=== PATIENT | male | born 2000 | race Caucasian/White ===

== ENCOUNTER 2018-03-02 00:07 | Emergency (ER) | payer OTHER ==
--- NOTE | 2018-03-02 00:36 | EDPHY ---
H & P Stated Complaint: "i'm having a heart attack", anxious, mid chest tightness Time Seen by Provider: 03/02/18 00:36 HPI/ROS: HPI CHIEF COMPLAINT: Anxiety attack HISTORY OF PRESENT ILLNESS: 17-year-old male, presents to the emergency room by private vehicle stating that he is feeling very anxious states that he was watching a movie lying down relaxed when all the sudden he felt his heart racing , numbness and tingling in bilateral arms, and epigastric spasms he states his abdomen with spasming. This started around 11 o'clock or close to 2 hr ago. It lasted 20-30 minutes. Due to this he felt very anxious any decided come the emergency room for evaluation. Past Medical History: Denies significant medical history Past Surgical History: Denies significant surgical history Social History: [employer] student, large amount of alcohol this weekend he states 10 drinks per day leading to him blacking out. Family History: Noncontributory ROS REVIEW OF SYSTEMS: 10 Systems were reviewed and negative with the exception of the elements mentioned in the history of present illness. Exam Constitutional anxious, nontoxic, triage nursing summary reviewed, vital signs reviewed, awake/alert. Eyes normal conjunctivae and sclera, EOMI, PERRLA. HENT normal inspection, atraumatic, moist mucus membranes, no epistaxis, neck supple/ no meningismus, no raccoon eyes. Respiratory clear to auscultation bilaterally, normal breath sounds, no respiratory distress, no wheezing. Cardiovascular rate normal, regular rhythm, no murmur, no edema, distal pulses normal. Gastrointestinal soft, non-tender, no rebound, no guarding, normal bowel sounds, no distension, no pulsatile mass. Genitourinary no CVA tenderness. Musculoskeletal no midline vertebral tenderness, full range of motion, no calf swelling, no tenderness of extremities, no meningismus, good pulses, neurovascularly intact. Skin pink, warm, & dry, no rash, skin atraumatic. Neurologic awake, alert and oriented x 3, AAOx3, moves all 4 extremities equally, motor intact, sensory intact, CN II-XII intact, normal cerebellar, normal vision, normal speech. Psychiatric normal mood/affect. Heme/Lymph/Immune no lymphadenopathy. Differential diagnosis includes but is not limited to: Acute anxiety attack, panic attack ACS, atypical chest pain, pneumothorax, pneumonia, pulmonary embolism, aortic dissection, congestive heart failure, tumor, musculoskeletal pain, esophageal pain, GERD, peptic ulcer disease, pancreatitis Medical Decision Making: Plan for this patient IV establishment with IV fluid bolus, GI cocktail to see if this helps with spasms, IV Ativan for anxiety, check troponin, EKG, chest x-ray, D-dimer and re-evaluate. Re-evaluation: EKG interpretation by me on record in [email or web address] system. Impression time of EKG 0018, sinus tach 101 T-wave inversion lead 3. Otherwise no abnormal T- waves. I do not appreciate ST elevation. Of note the EKG at the top of the EKG is reading borderline ST elevation in anterior leads however I disagree with this. 0430: Patient re-evaluated this time is resting comfortably. Denies any chest pain or shortness of breath. Feels much better after IV Ativan. Has been sleeping here in the emergency room for over 4 hr. Resting. No complaints. Patient's initial troponin was negative. Additionally the initial EKG did not show any acute ischemia. I have repeated the patient's troponin over 4 hr since being in the emergency room, and is 0.00. The patient does not have any ongoing chest pain. I also repeated the patient's EKG. EKG interpretation by me on record in [email or web address] system. Impression time of EKG 4:09 a.m., this is sinus rhythm rate is 71 T-wave abnormality lead 3. An EKG appears to have a early Re-bertha pattern. The patient's EKG displaying a re-bertha patterns, make sense as this is a young healthy 17-year-old male. I think acute coronary syndrome is very unlikely given he has been monitored for multiple hours in the emergency room with 2- troponins. Of which the 2nd troponin is over 6 hr from time of symptom onset. He has had 2 troponins here that her 0.00 and 4 hr apart. Additionally 2 EKGs that are re-bertha pattern. Also patient improved with IV Ativan. Additionally I did review the patient's chest x-ray. This is negative for acute cardiopulmonary disease. . 0501AM: When discussed patient's extensive workup here in emergency room is resting comfortably in fact he was sleeping. He denies any chest pain or shortness of breath. He states he feels much better after IV Ativan. However on further discussion he does state that he has been suffering from depression for a long time. Since age 9. He is not on any depression medications. I asked him if he has had thoughts of suicide recently states that he has thoughts of suicide every day. But would not do this. He would not take action. However he states he is depressed, and he is agreeable to speak with mental health. 0633AM: I additionally spoke with Dr. Atkinson with Cardiology about this patient's presentation and we reviewed his EKGS. Dr. Atkinson Looked at his EKGS and we discussed both of them in detail. He feels this is Early Repol. As they had ST elevation that appears to be [id number] pattern. Dr. Atkinson he has reviewed the EKGs. He feels that these EKGs are a early re-bertha pattern, and that if he is no longer having pain (which he does not have any pain) and 2 negative troponins, patient can be discharged. Patient does not have any chest pain. Feeling well. However, patient would like to speak to mental health. We are waiting for mental health to discuss with him. 3rd troponin 0.00 Signed over at 7am shift-change to Dr. Ramos follow up Mental Health Recs. Source: Patient - Personal History Current Tetanus Diphtheria and Acellular Pertussis (TDAP): Yes - Medical/Surgical History Hx Asthma: No Hx Chronic Respiratory Disease: No Hx Diabetes: No Hx Cardiac Disease: No Hx Renal Disease: No Hx Cirrhosis: No Hx Alcoholism: No Hx HIV/AIDS: No Hx Splenectomy or Spleen Trauma: No Other PMH: denies - Social History Smoking Status: Never smoked Constitutional: Initial Vital Signs Temperature (C) 36.5 C 03/02/18 00:10 Heart Rate 117 H 03/02/18 00:10 Respiratory Rate 20 03/02/18 00:10 Blood Pressure 163/92 H 03/02/18 00:10 O2 Sat (%) 97 03/02/18 00:10 O2 Delivery Mode Room Air Allergies/Adverse Reactions: No Known Allergies Allergy (Unverified 03/02/18 00:10) Medical Decision Making - Data Points Laboratory Results: Laboratory Results 03/02/18 00:30 03/02/18 00:30 Medications Given: Discontinued Medications Al Hydroxide/Mg Hydroxide (Maalox Susp) 30 ml PO ONCE ONE Stop: 09/05/18 00:45 Last Admin: 03/02/18 01:08 Dose: 30 ml Hyoscyamine Sulfate (Levsin, Hyomax-Sl) 0.25 mg PO ONCE ONE Stop: 03/02/18 00:45 Last Admin: 03/02/18 01:07 Dose: 0.25 mg Sodium Chloride (Ns) 1,000 mls @ 0 mls/hr IV EDNOW ONE; Wide Open PRN Reason: Protocol Stop: 03/02/18 00:45 Last Admin: 03/02/18 02:15 Dose: Not Given Lidocaine (Lidocaine 2% Viscous) 15 ml PO ONCE ONE Stop: 03/02/18 00:45 Last Admin: 03/02/18 01:08 Dose: 15 ml Lorazepam (Ativan Injection) 1 mg IVP EDNOW ONE Stop: 03/02/18 00:49 Last Admin: 03/02/18 01:08 Dose: 1 mg Point of Care Test Results: Chemistry 03/02/18 03/02/18 03/02/18 06:47 04:15 01:19 POC Troponin I 0.00 ng/mL ng/mL 0.00 ng/mL ng/mL 0.01 ng/mL ng/mL (0.00-0.08) (0.00-0.08) (0.00-0.08) Departure - Departure Disposition: Home, Routine, Self-Care Clinical Impression: Anxiety attack Depression Qualifiers: Depression Type: major depressive disorder Major depression recurrence: single episode Active/Remission status: currently active Major depression episode severity: mild Qualified Code(s): F32.0 - Major depressive disorder, single episode, mild Condition: Good Instructions: Depression (ED), Anxiety (ED) Additional Instructions: 1. Return to the emergency room if develops worsening symptoms this includes shortness of breath, chest pain, or not feeling well. Referrals: NONE *PRIMARY CARE P,. [Primary Care Provider] - As per Instructions [facility] [Clinic] - As per Instructions
[2018-03-02] MEDS ORDERED: MAG HYDROX/AL HYDROX/SIMETH 30 ML UDCUP PO ONE (00:44)
[2018-03-02] MEDS ORDERED: LIDOCAINE 2% VISCOUS 15 ML UDCUP PO ONE (00:44)
[2018-03-02] MEDS ORDERED: NS 1,000 ML IV ONE (00:44)
[2018-03-02] MEDS ORDERED: HYOSCYAMINE SULFATE 0.125 MG TAB PO ONE (00:44)
[2018-03-02] MEDS ORDERED: LORazepam 2 MG/ML INJ IVP ONE (00:48)
[2018-03-02 00:56] LABS: PLATELET COUNT 226 10^3/uL (150-400)
[2018-03-02 07:32] VITALS: BP 114/57
--- NOTE | 2018-03-02 07:48 | ASMTLCPROG ---
Notes Note: Notes: Met with patient per doc request that patient is feeling depressed and has suicidal thoughts but said he wouldn't act on them. Came to ED with chest pain, felt like he was having a heart attack. PT reported he is a [employer] and is majoring in Business. He said he is doing well at school, but feels depressed, and has feeling of shame and guilt, when asked why he feels that way he didn't know why, that he done anything to warrant these negative feelings. Pt [facility] and he said its been helpful but he hasn't been honest the therapist about how much he's drinking.Pt reported he drank this Wednesday and blacked out for 24-6 hours, he reported he ahsn't drank since then. He said recently his roommates have toldhimhe's drinking a lot Recommended to Pt that he look into a Young Person's meeting (AA) at and to go to [facility] walk in hours this mroning and get an appointment with a psychiatrist to talk about getting on an antidepressant, also taught Pt some breathing excercises to practice when he isn't feeling panicky so he can know how to calm himself down if he begins to feel anxiety. Pt agreed to follow up with recommendations Client has insight and has a support from friends and family Date Signed: 03/02/2018 07:48 AM Electronically Signed By:Isha Villatoro
--- NOTE | 2018-03-02 23:09 | CPEKG ---
Test Reason : OPEN Blood Pressure : / mmHG Vent. Rate : 071 BPM Atrial Rate : 067 BPM P-R Int : 145 ms QRS Dur : 094 ms QT Int : 396 ms P-R-T Axes : 014 067 -03 degrees QTc Int : 431 ms Sinus rhythm Borderline T abnormalities, inferior leads ST elev, probable normal early repol pattern Confirmed by Saul Menezes ([id number]) on 03/02/2018 11:08:14 PM Referred By: Confirmed By:Saul Menezes
--- NOTE | 2018-03-02 23:09 | CPEKG ---
Test Reason : OPEN Blood Pressure : / mmHG Vent. Rate : 101 BPM Atrial Rate : 101 BPM P-R Int : 140 ms QRS Dur : 099 ms QT Int : 351 ms P-R-T Axes : 048 086 -02 degrees QTc Int : 455 ms Sinus tachycardia Borderline T abnormalities, inferior leads Borderline ST elevation, anterior leads Confirmed by Saul Menezes ([id number]) on 03/02/2018 11:08:13 PM Referred By: Confirmed By:Saul Menezes
== END 2018-03-02 07:35 | disposition home or self-care (01) ==
DX: F41.0 Panic disorder [episodic paroxysmal anxiety] (principal); F32.0 Major depressive disorder, single episode, mild; Z72.89 Other problems related to lifestyle
CPT/HCPCS: 80305; 84484-PO; 96374; J2060